=== PATIENT | male | born 1975 | race American Indian/Alaskan Native ===

== ENCOUNTER 2016-07-16 04:05 | Emergency (ER) | payer BC ==
[2016-07-16 05:00] LABS: Basophils % (Auto) 0.7 % (0.0-1.8); Hematocrit 46.2 % (35.5-45.6); Hemoglobin 15.5 gm/dl (11.8-15.2); Mean Corpuscular HGB Conc 34 % (32-34); Mean Corpuscular Hemoglobin 30 pg (28-32); Mean Corpuscular Volume 89 fl (84-94); Platelet Count 176 K/mm3 (140-440); Red Blood Count 5.21 M/mm3 (3.65-5.03); Red Cell Distribution Width 13.3 % (13.2-15.2); White Blood Count 4.4 K/mm3 (4.5-11.0)
[2016-07-16 05:21] LABS: Anion Gap 16 mmol/L; BUN/Creatinine Ratio 18.75; Blood Urea Nitrogen 15 mg/dL (9-20); Calcium 8.6 mg/dL (8.4-10.2); Carbon Dioxide 23 mmol/L (22-30); Chloride 103.9 mmol/L (98-107); Glucose 96 mg/dL (75-100); Sodium 139 mmol/L (137-145)
--- NOTE | 2016-07-16 10:23 | Cat Scan Report ---
CT head without contrast: Axial images through the intracranial structures demonstrates normal anatomy. No mass effect, hemorrhage, nor extracerebral collection identified. The visualized sinuses are unremarkable. The frontal sinuses are almost aplastic. No bone lesions identified. Impression: No pathology identified.
--- NOTE | 2016-07-16 11:14 | Emergency Department Report ---
ED General Adult HPI - General Chief complaint: Neuro Symptoms/Deficit Stated complaint: LEFT ARM NUMBNESS/HEADACHE Time Seen by Provider: 07/16/16 09:55 Source: patient Mode of arrival: Ambulatory Limitations: No Limitations - History of Present Illness Initial comments: Patient states when he woke up he had paresthesias of his entire left arm as if he had slept on it. He thought this was strange because he sleeps on his back. He tried to move his hand and he felt some stiffness. Thereby he thought he should be checked out. He states he's never experienced these type of symptoms before. He does do warehouse work. He cannot recall any injury. He does not complain of neck pain or headache. -: During the night Location: left, upper extremity Quality: other (tingling) Consistency: now resolved Improves with: none Worsens with: none Associated Symptoms: denies other symptoms Treatments Prior to Arrival: none - Related Data Home Medications Medication Instructions Recorded Confirmed Last Taken No Known Home Medications [No 02/28/16 02/28/16 Unknown Reported Home Medications] Allergies Allergy/AdvReac Type Severity Reaction Status Date / Time No Known Allergies Allergy Unverified 02/28/16 12:22 ED Review of Systems ROS: Stated complaint: LEFT ARM NUMBNESS/HEADACHE Other details as noted in HPI Constitutional: denies: chills, fever Eyes: denies: eye pain, eye discharge, vision change ENT: denies: ear pain, throat pain Respiratory: denies: cough, shortness of breath, wheezing Cardiovascular: denies: chest pain, palpitations Endocrine: no symptoms reported Gastrointestinal: denies: abdominal pain, nausea, diarrhea Genitourinary: denies: urgency, dysuria Musculoskeletal: denies: back pain, joint swelling, arthralgia Skin: denies: rash, lesions Neurological: paresthesias. denies: headache, weakness, numbness, confusion, abnormal gait, vertigo Psychiatric: denies: anxiety, depression Hematological/Lymphatic: denies: easy bleeding, easy bruising ED Past Medical Hx - Past Medical History Hx Psychiatric Treatment: Yes (anxiety) - Surgical History Past Surgical History?: No - Social History Smoking Status: Never Smoker Substance Use Type: None - Medications Home Medications: Home Medications Medication Instructions Recorded Confirmed Last Taken Type No Known Home Medications [No 02/28/16 02/28/16 Unknown History Reported Home Medications] ED Physical Exam - General Limitations: No Limitations General appearance: alert, in no apparent distress - Head Head exam: Present: atraumatic, normocephalic - Eye Eye exam: Present: normal appearance, PERRL, EOMI. Absent: scleral icterus - ENT ENT exam: Present: normal exam, mucous membranes moist - Neck Neck exam: Present: normal inspection. Absent: tenderness, meningismus - Respiratory Respiratory exam: Present: normal lung sounds bilaterally. Absent: respiratory distress - Cardiovascular Cardiovascular Exam: Present: regular rate, normal rhythm. Absent: systolic murmur, diastolic murmur, rubs, gallop - GI/Abdominal GI/Abdominal exam: Present: soft, normal bowel sounds. Absent: distended, tenderness, guarding, rebound - Rectal Rectal exam: Present: deferred - Extremities Exam Extremities exam: Present: normal inspection, full ROM, normal capillary refill , other (ulna and radial pulse is strong and both arms). Absent: tenderness, calf tenderness - Back Exam Back exam: Present: normal inspection - Neurological Exam Neurological exam: Present: alert, oriented X3, CN II-XII intact, other (no drift motor and sensory exam were normal). Absent: motor sensory deficit - Psychiatric Psychiatric exam: Present: normal affect, normal mood - Skin Skin exam: Present: warm, dry, intact, normal color. Absent: rash ED Course Vital Signs 07/16/16 04:23 Temperature 97.6 F Pulse Rate 65 Respiratory 16 Rate Blood Pressure 114/74 Blood Pressure 114/75 [Left] O2 Sat by Pulse 100 Oximetry - Reevaluation(s) Reevaluation #1: Patient has been essentially asymptomatic here. He will be referred to a neurologist. 07/16/16 11:20 ED Medical Decision Making - Lab Data Result diagrams: 07/16/16 04:42 07/16/16 04:42 Laboratory Results - last 24 hr 07/16/16 07/16/16 04:42 04:42 WBC 4.4 L RBC 5.21 H Hgb 15.5 H Hct 46.2 H MCV 89 MCH 30 MCHC 34 RDW 13.3 Plt Count 176 Lymph % (Auto) 35.5 H [place] % (Auto) 15.3 H Eos % (Auto) 5.0 H Baso % (Auto) 0.7 Lymph # 1.6 [place] # 0.7 Eos # 0.2 Baso # 0.0 Seg Neutrophils % 43.5 Seg Neutrophils # 1.9 Sodium 139 Potassium 4.0 Chloride 103.9 Carbon Dioxide 23 Anion Gap 16 BUN 15 Creatinine 0.8 Estimated GFR > 60 BUN/Creatinine Ratio 18.75 Glucose 96 Calcium 8.6 - EKG Data -: EKG Interpreted by Me EKG shows normal: sinus rhythm, axis, intervals, QRS complexes, ST-T waves Rate: normal - EKG Data Interpretation: no acute changes, normal EKG - Radiology Data Radiology results: report reviewed Normal CT of the head abdominal study CT the head Critical care attestation.: If time is entered above; I have spent that time in minutes in the direct care of this critically ill patient, excluding procedure time. ED Disposition Clinical Impression: Paresthesias Disposition: DISCHARGED TO HOME OR SELFCARE Is pt being admited?: No Does the pt Need Aspirin: No Condition: Stable Instructions: Paresthesia (ED) Additional Instructions: I would recommend that you take a baby aspirin a day until you can be seen by a neurology Dr. There is no evidence of stroke at this time. I've given you a referral. Referrals: DAVID DIAZ MD [Primary Care Provider] - 3-5 Days WILFRID COLLINS MD [Staff Physician] - 3-5 Days [facility] [Provider Group] - 2-3 Days Time of Disposition: 11:21
[2016-07-16 11:50] VITALS: BP 122/66
== END 2016-07-16 11:50 | disposition home or self-care (01) ==
LOC: ED 04:05
DX: R20.9 Unspecified disturbances of skin sensation (principal); F41.9 Anxiety disorder, unspecified
CPT/HCPCS: 36415; 70450; 80048; 85025; 93005; 93010